=== PATIENT | male | born 1955 | race Caucasian/White ===

== ENCOUNTER 2017-05-13 05:55 | Day surgery (SDC) | payer OTHER ==
[~2017-05-13] VITALS: Ht 172.7 cm; Wt 100.5 kg
[2017-05-13] VITALS (7 sets, daily range): BP systolic 112–149; BP diastolic 68–101; PULSE 62–74; TEMP 97.8–98.6
[~2017-05-13 05:55] MED LIST: ASPIRIN 32325 MG/TA1 PO; LIPITOR20 MG PO; LOTENSIN HCT 201 TAB PO; NORCO 325 MG-7.1 TAB PO; PHENERGAN 25 TA25 MG PO; ROXICODONE 55 MG/TAB PO
[2017-05-13] MEDS ORDERED: TOPROL XL 25MG25 MG PO (06:11)
[2017-05-13] MEDS ORDERED: ASPIRIN E.C. 8181 MG PO (06:12)
[2017-05-13] MEDS ORDERED: FISH OIL 1000MG1 CAP PO (06:13)
[2017-05-13] MEDS ORDERED: CARDIOVID PLUS1 SGL PO (06:31)
[2017-05-13] MEDS ORDERED: MULTIPLE VITAMI1 CAP PO (06:31)
[2017-05-13] MEDS ORDERED: [UNRECOGNIZED DRUG - OTHER] PO (06:32)
== END 2017-05-13 08:50 | disposition home or self-care (01) ==
LOC: SDCO 05:55
DX: Z12.11 Encounter for screening for malignant neoplasm of colon (principal); K62.1 Rectal polyp
CPT/HCPCS: OP; J2250; J2405; J3010; J7030

== ENCOUNTER 2021-11-12 11:41 | Outpatient (CLI) | payer OTHER ==
[~2021-11-12] VITALS: Ht 172.7 cm; Wt 90.9 kg
[~2021-11-12 11:41] MED LIST changes: +ASPIRIN E.C. 8181 MG PO; +CARDIOVID PLUS1 SGL PO; +FISH OIL 1000MG1 CAP PO; +MULTIPLE VITAMI1 CAP PO; +TOPROL XL 25MG25 MG PO; +[UNRECOGNIZED DRUG - OTHER] PO
[2021-11-12 11:48] VITALS: BP 160/86; PULSE 73
[2021-11-12 12:00] VITALS: BP 161/82; PULSE 74
[2021-11-12 12:15] VITALS: BP 157/85; PULSE 74
[2021-11-12 12:30] VITALS: BP 163/97; PULSE 74
[2021-11-12 12:45] VITALS: BP 175/102; PULSE 72
[2021-11-12] MEDS ORDERED: HCTZ 25MG TAB25 MG PO (13:12)
== END 2021-11-12 13:13 ==
LOC: EUO 11:41
DX: U07.1 COVID-19 (principal); I51.9 Heart disease, unspecified
CPT/HCPCS: M0247; Q0247

== ENCOUNTER → 2021-12-24 | Outpatient (CLI) | payer OTHER ==
[~2021-12-24] MED LIST changes: +HCTZ 25MG TAB25 MG PO
== END ==
LOC: MC.RAD 13:19
DX: N63.21 Unspecified lump in the left breast, upper outer quadrant (principal)